=== PATIENT | male | born 1995 | race Caucasian/White ===

== ENCOUNTER 2019-06-22 07:42 | Inpatient (IN) ==
--- NOTE | 2019-06-22 08:24 | Emergency Department Note ---
ED Provider Note CHIEF COMPLAINT: Chest pain HISTORY OF PRESENTING ILLNESS: This is a 24-year-old male with no significant past medical history who presents to the emergency department by private vehicle with complaint of chest pain. Patient states for the past 3 nights he has been waking up around 3 AM with severe pain in his chest. He states the pain is in the middle of his chest and does not radiate anywhere, he describes it as a burning and a tightness, and states the pain is quite severe. Patient states that the pain last for an hour or 2 and then subsides on its own. Patient states that he thought it might be indigestion so he tried Tums and some baking soda with water, but notes that this did not help and he vomited right after he took these. He has vomited after drinking water the past few nights as well. He states that his symptoms lasted about 2 hours and completely resolved today. He presents to the ER because he is concerned for the persistent symptoms 3 nights in a row. He denies any history of similar symptoms in the past. He denies tobacco use or alcohol use. He does not have any symptoms during the day and has been eating and drinking without any difficulty. He denies any recent diet changes. He denies any bloody or coffee-ground emesis. His last bowel movement was today and was normal, he denies any diarrhea, constipation, bloody or black stools. He denies any abdominal or back pain. He denies any known [facility] history of heart disease. REVIEW OF SYSTEMS: A complete 10 point review of systems was reviewed with the patient with pertinent positives and negatives as per history of present illness. All else were negative. PAST MEDICAL HISTORY: No significant past medical or surgical history SOCIAL HISTORY: Lives at home, denies tobacco use ALLERGIES: No known drug allergies PHYSICAL EXAM: CONSTITUTIONAL: Pleasant and cooperative. Nontoxic-appearing and in no acute distress. Well appearing and well nourished. HEENT: Normocephalic, atraumatic. PERRL, EOMI. Pharynx normal. Moist mucous membranes. Airway patent. NECK: Supple, full active range of motion without discomfort. No cervical jess opathy. RESPIRATORY: Clear to auscultation bilaterally with no wheezing, crackles, rhonchi or stridor. Equal expansion bilaterally. CARDIOVASCULAR: Regular rate and rhythm with no murmurs, rubs or gallops. Normal peripheral perfusion, 2+ distal pulses in all 4 extremities. No pitting edema. GASTROINTESTINAL: Soft, nontender, nondistended. No palpable masses or HSM. Bowel sounds present in all quadrants. No CVA tenderness bilaterally. MUSCULOSKELETAL: Full range of motion of all joints without discomfort. No tenderness to palpation of the calves. INTEGUMENTARY: No rash or other significant dermatologic conditions noted. NEUROLOGIC: Alert and oriented X 4 with normal affect. Normal strength and sensation in all 4 extremities. Normal speech. Normal gait observed. ED COURSE AND MEDICAL DECISION MAKING: CC: Patient presenting with complaint of chest pain DIFFERENTIAL DIAGNOSIS: Includes, but not limited to GERD, gastritis, peptic ulcer disease, pancreatitis, cholecystitis, esophagitis, esophageal spasms, acute coronary syndrome, pericarditis, myocarditis, anxiety, among others. INTERPRETATION OF LABS: Leukocytosis, no anemia, normal platelets, no significant electrolyte abnormalities, normal renal function, AST is elevated, liver enzymes are otherwise normal, normal lipase. Significantly elevated troponin. IMAGING: XR chest 1V portable CLINICAL HISTORY: Atypical chest pain COMPARISON STUDY: No previous studies for comparison. FINDINGS: The cardiac and mediastinal contours are normal. There is no evidence of focal pulmonary consolidation. There is no evidence of failure. No pleural effusions are visualized. IMPRESSION: No active disease in the chest. EKG Interpretation: 06/22/2019 0750: Shows normal sinus rhythm with a rate of 86 bpm, normal intervals, 0.5-[address] elevations in leads II, aVF, and V2-V6, no ST depression, no ectopy by my interpretation. No previous EKG available for comparison. 06/22/2019 0914: Normal sinus rhythm with a rate of 74 bpm, mild ST elevation persist in leads V2 through V6, less prominent in leads II and aVF, T wave inversions now noted in leads I and aVL, no ST depression and no ectopy by my interpretation. MEDICATION RECONCILIATION: I attest that I have personally reviewed the patient's current medication list. INITIAL VITAL SIGNS REVIEW: I reviewed the patient's initial vital signs and interpret them as follows: T: Afebrile; BP: Normotensive; HR: Mildly tachycardic; RR: Within normal limits; Pulse Ox: Within normal limits on room air. Blood pressure screening: The patient was found to have normal blood pressure on screening and does not require follow-up for repeat blood pressure check. MDM SUMMARY: Patient was evaluated at bedside, history and physical exam performed. Patient is alert and oriented, in no acute distress, resting calmly in the stretcher. He denies any pain or other symptoms at this time. Lungs are clear. Heart sounds normal with no murmurs or rubs heard on auscultation. No edema. No reproducible chest wall pain. There is no pain with position changes or deep inspiration. Orders were placed at bedside for labs including a troponin, EKG, chest x-ray to evaluate for cardiopulmonary disease. Patient discussed with Dr. Nix, who agrees with my assessment, plan, and disposition. EKG reviewed as above, noting very mild ST elevation in multiple leads, which may suggest a mild pericarditis. Labs and imaging reviewed as above, labs reveal a mild leukocytosis as well as significantly elevated troponin. Heart score is 4 points for EKG changes and elevated troponin. I spoke on the phone with Dr. Taveras, cardiology, who evaluated the patient in the emergency department and performed a bedside echo. Bedside echo was concerning for mild global LV hypokinesis, Dr. Taveras recommended the patient be transferred to [place] to have a cardiac MRI. Dr. Taveras spoke on the phone with Dr. Villarreal, consultant teacher at [facility] in [place], who agrees to accept the patient as a direct admit for transfer. No additional treatments recommended at this time by the cardiologists. Patient will be kept NPO. Patient reassessed multiple times throughout ED stay, he has remained hemodynamically stable and chest pain-free. The patient and his parents were updated on the plan for transfer to [facility], they verbalized understanding and were agreeable to this plan. The charge nurse updated me on the fact that there is no bed availability at [facility] in [place] and it is uncertain when a bed will become available. I spoke on the phone with Dr. Villarreal, consultant teacher at [place], who felt it would be reasonable for the patient to be admitted to our hospitalist service here in the patient could be transferred for the cardiac MRI when a bed does become available. Dr. Villarreal did note that if the patient has been stable and chest pain-free, the cardiac MRI could also be done as an outpatient study after the patient has been appropriately observed. I spoke on the phone with MODESTO Love with [facility] hospitalist service, she spoke with Dr. Taveras, who requested that we see if the patient can be transferred to [facility] for cardiac MRI. I spoke on the phone with Dr. Chin, consultant teacher at [facility], who was happy to accept the patient for transfer, but stated that it could be several weeks until they are able to perform a cardiac MRI due to their scheduling. I spoke on the phone with Dr. Taveras again, we will keep the patient here on the [facility] service until the patient is able to be transferred to [facility] in [place], as he may be able to get a more timely cardiac MRI there. He did recommend starting the patient on metoprolol succinate 12.5 mg p.o. daily, first dose now. He also requested blood cultures be sent. I again spoke with MODESTO Love, who agrees to evaluate the patient for the admission. The patient and his family were all updated regarding the current plan of care and admission here at [facility], all questions were answered at this time and they verbalized understanding of the plan. The patient was stable awaiting admission. CRITICAL CARE NOTE: I have personally spent greater than 45 minutes of critical care time in the direct management of this patient. This includes bedside care, interpretation of diagnostic studies, and testing, discussion with consultants, patient, and f amily members, and other required patient management activities. This 45 minutes is in excess of all separately billable procedures. The chart was completed utilizing [employer] Speech voice recognition software. Grammatical errors, random word insertions, pronoun errors, and incomplete sentences are an occasional consequence of this system due to software limitations, ambient noise, and hardware issues. Any formal questions or concerns about the content, text, or information contained within the body of this dictation should be directly addressed to the nurse practitioner for clarification. Impression & Plan Chest pain, Elevated troponin Past Med/Surg History Social History Feels Safe at Home: Yes Smoking Status: Never smoker Results & Data Vital Signs Vital Signs - 24 hr 06/22/19 07:45 06/22/19 07:54 06/22/19 08:00 Temperature 36.9 C Temperature Source Oral Pulse Rate 102 H 90 78 Pulse Rate from SpO2 Sensor Respiratory Rate 20 27 H 17 Respiratory Effort / Characteristics Non-Labored Respiratory Depth Normal Blood Pressure 130/74 Blood Pressure Mean 92 Blood Pressure Position Sitting Pulse Oximetry 98 Oxygen Delivery Method Room Air Sepsis Recent Fever Within 48 Hours No Sepsis Action Taken by Nursing No Action Required 06/22/19 08:30 06/22/19 08:32 06/22/19 09:00 Temperature Temperature Source Pulse Rate 81 73 Pulse Rate from SpO2 Sensor Respiratory Rate 12 15 Respiratory Effort / Characteristics Respiratory Depth Blood Pressure Blood Pressure Mean Blood Pressure Position Pulse Oximetry Oxygen Delivery Method Room Air Sepsis Recent Fever Within 48 Hours Sepsis Action Taken by Nursing 06/22/19 09:29 06/22/19 09:30 06/22/19 10:00 Temperature Temperature Source Pulse Rate 89 79 79 Pulse Rate from SpO2 Sensor Respiratory Rate 14 17 18 Respiratory Effort / Characteristics Respiratory Depth Blood Pressure 95/65 L Blood Pressure Mean 73 Blood Pressure Position Pulse Oximetry Oxygen Delivery Method Sepsis Recent Fever Within 48 Hours Sepsis Action Taken by Nursing 06/22/19 10:30 06/22/19 11:00 06/22/19 11:26 Temperature Temperature Source Pulse Rate 77 79 85 Pulse Rate from SpO2 Sensor Respiratory Rate 12 16 19 Respiratory Effort / Characteristics Respiratory Depth Blood Pressure 108/66 Blood Pressure Mean 72 Blood Pressure Position Pulse Oximetry Oxygen Delivery Method Sepsis Recent Fever Within 48 Hours Sepsis Action Taken by Nursing 06/22/19 11:30 06/22/19 12:00 06/22/19 12:30 Temperature Temperature Source Pulse Rate 90 86 83 Pulse Rate from SpO2 Sensor Respiratory Rate 15 22 12 Respiratory Effort / Characteristics Respiratory Depth Blood Pressure Blood Pressure Mean Blood Pressure Position Pulse Oximetry Oxygen Delivery Method Sepsis Recent Fever Within 48 Hours Sepsis Action Taken by Nursing 06/22/19 13:00 06/22/19 13:30 06/22/19 14:00 Temperature Temperature Source Pulse Rate 87 84 90 Pulse Rate from SpO2 Sensor Respiratory Rate 20 19 16 Respiratory Effort / Characteristics Respiratory Depth Blood Pressure Blood Pressure Mean Blood Pressure Position Pulse Oximetry Oxygen Delivery Method Sepsis Recent Fever Within 48 Hours Sepsis Action Taken by Nursing 06/22/19 14:30 06/22/19 14:39 06/22/19 16:27 Temperature Temperature Source Pulse Rate 88 84 86 Pulse Rate from SpO2 Sensor 83 Respiratory Rate 17 13 15 Respiratory Effort / Characteristics Respiratory Depth Blood Pressure 111/68 116/74 Blood Pressure Mean 86 78 Blood Pressure Position Pulse Oximetry 99 Oxygen Delivery Method Sepsis Recent Fever Within 48 Hours Sepsis Action Taken by Nursing Laboratory Data Result diagrams: 06/22/19 08:28 06/22/19 08:28 Lab Results 06/22/19 06/22/19 06/22/19 Range/Units 08:28 08:28 08:28 WBC 14.19 H (4.8-10.8) K/uL RBC 5.30 (4.7-6.1) M/uL Hgb 15.4 (14.0-18.0) g/dL Hct 45.1 (42-52) % MCV 85.1 (80-100) fL MCH 29.1 (25-34) pg MCHC 34.1 (32-36) g/dL RDW Std Deviation 41.2 (36.4-46.3) fL RDW Coeff of [place] 13.2 (11.5-14.5) % Plt Count 270 (130-400) K/uL MPV 8.3 (7.4-10.4) fL Immature Gran % (Auto) 1.0 % Neut % (Auto) 75.4 % Lymph % (Auto) 14.9 % [place] % (Auto) 8.3 % Eos % (Auto) 0.1 % Baso % (Auto) 0.3 % Immature Gran # (Auto) 0.14 H (0.00-0.02) K/uL Neut # (Auto) 10.69 H (1.4-6.5) K/uL Lymph # (Auto) 2.12 (1.2-3.4) K/uL [place] # (Auto) 1.18 H (0.11-0.59) K/uL Eos # (Auto) 0.02 (0-0.5) K/uL Baso # (Auto) 0.04 (0-0.2) K/uL Sodium 138 (136-145) mmol/L Potassium 3.9 (3.5-5.1) mmol/L Chloride 105 (98-107) mmol/L Carbon Dioxide 28 (21-32) mmol/L Anion Gap 5.0 (3-11) BUN 11 (7-18) mg/dl Creatinine 1.10 (0.6-1.4) mg/dl Est Cr Clr Drug Dosing 115.0 ml/min Est GFR ( Amer) 106.8 Est GFR (Non-Af Amer) 92.2 BUN/Creatinine Ratio 9.8 L (10-20) Glucose 96 (70-99) mg/dl Calcium 9.4 (8.5-10.1) mg/dl Total Bilirubin 0.5 (0.2-1) mg/dl AST 100 H (15-37) U/L ALT 43 (12-78) U/L Alkaline Phosphatase 105 (45-117) U/L Total Creatine Kinase 749 H (39-308) U/L Troponin I 22.800 H* (0-0.045) ng/ml Total Protein 8.0 (6.4-8.2) gm/dl Albumin 3.7 (3.4-5.0) gm/dl Globulin 4.3 H (2.5-4.0) gm/dl Albumin/Globulin Ratio 0.9 (0.9-2) Lipase 84 (73-393) U/L Discharge Plan Visit Data Chief Complaint: Chest Pain Stated Complaint: CHEST PAIN, TIGHTNESS ED Provider: Shaquille Nix ED Midlevel Provider: Karin Carrasquillo Discharge Problem: Chest pain, Elevated troponin Patient Disposition: Being Evaluated by Hospitalist Condition: Good Forms Stand Alone Forms: Rouxbe Prescriptions Prescriptions: No Action No Known Home Medications RF: 0 Referrals Referrals: PCP,NO [Primary Care Provider] -
--- NOTE | 2019-06-22 08:26 | XRay Report ---
XR chest 1V portable CLINICAL HISTORY: Atypical chest pain COMPARISON STUDY: No previous studies for comparison. FINDINGS: The cardiac and mediastinal contours are normal. There is no evidence of focal pulmonary co nsolidation. There is no evidence of failure. No pleural effusions are visualized.[ IMPRESSION: No active disease in the chest. ACT 112: Negative or not required by law. Electronically signed by: Irwin Cameron M.D. 06/22/2019 8:25 AM
[2019-06-22 08:39] LABS: Basophils # (auto) 0.04 K/uL (0-0.2); Basophils % (auto) 0.3 %; Eosinophils # (auto) 0.02 K/uL (0-0.5); Eosinophils % (auto) 0.1 %; Hematocrit (blood only) 45.1 % (42-52); Hemoglobin 15.4 g/dL (14.0-18.0); Immature Granulocytes # (auto) 0.14 K/uL (0.00-0.02); Lymphocytes # (auto) 2.12 K/uL (1.2-3.4); Lymphocytes % (auto) 14.9 %; Mean Corpuscular Hemoglobin 29.1 pg (25-34); Mean Corpuscular Hgb Conc 34.1 g/dL (32-36); Mean Corpuscular Volume 85.1 fL (80-100); Mean Platelet Volume 8.3 fL (7.4-10.4); Monocytes # (auto) 1.18 K/uL (0.11-0.59); Monocytes % (auto) 8.3 %; Neutrophils # (auto) 10.69 K/uL (1.4-6.5); Neutrophils % (auto) 75.4 %; Platelet Count 270 K/uL (130-400); RDW Coefficient of Variation 13.2 % (11.5-14.5); RDW Standard Deviation 41.2 fL (36.4-46.3); White Blood Count 14.19 K/uL (4.8-10.8)
[2019-06-22 08:57] LABS: Albumin Level 3.7 gm/dl (3.4-5.0); BUN Creatinine Ratio 9.8 (10-20); Calcium 9.4 mg/dl (8.5-10.1); Est GFR (African American) 106.8; Est GFR (Non-African American) 92.2; Potassium 3.9 mmol/L (3.5-5.1)
[2019-06-22 09:06] LABS: Albumin Globulin Ratio 0.9 (0.9-2); Bilirubin,Total 0.5 mg/dl (0.2-1); Globulin 4.3 gm/dl (2.5-4.0); Troponin I 22.8 ng/ml (0-0.045)
--- NOTE | 2019-06-22 10:18 | Cardiology Consultation ---
Date of Consultation June 22, 2019 Assessment & Plan (1) Chest pain: (2) Elevated troponin: Currently he is pain-free at rest. The pattern of chest pain is obviously very atypical for ischemia. Given the patient's age and healthy status along with the troponin elevation, repolarization patterns on EKG, elevated white count and mild global LV hypokinesis I believe myocarditis is at the top of the differential diagnosis. Unfortunately, cardiac MRI is not available at this facility, so, I believe the most prudent course of action would be to transfer to a tertiary care center where cardiac MRI is available to confirm or exclude the diagnosis I have discussed the case with Dr. Villarreal the on-call shagger at [facility] and he is been accepted for transfer. At this time I do not see the benefit of initiating any medications, should myocarditis be confirmed then supportive care will be initiated I have explained the above findings along with the differential diagnosis with the patient and his parents. They all state that they understand, agree with the above plan and agree with transfer to [facility]. They verbalized that all their questions have been answered to satisfaction. History of Present Illness Reason for Consultation: Chest pain with troponin elevation Requesting Physician: MODESTO aBcon Attending Physician: Dr. Nix History of Present Illness It was my pleasure to see Mr. Menendez in emergent cardiac consultation today June 22, 2019. He is a very pleasant and healthy 24-year-old gentleman who presented to [facility] with complaints of chest pain. He states that the 3 nights prior to presentation he would go to bed in her normal state of health and then wake up in the middle the night with chest pain. He would describe it as a pressure/stabbing/burning sensation that would be rather severe at times. At first he thought it was indigestion and tried to make himself vomit which did not seem to help that much. After about an hour the symptoms resolved on their own and he was able to go back to sleep. He had a similar pattern the next 2 nights and did attempt taking antacids without benefit. The episode on the was much more severe and he came into the emergency department with his parents. He is now currently pain-free. He denies any pain throughout the day and again the only episodes that have occurred in the middle the night that would wake him up. He denies any associated shortness of breath, radiation of the discomfort, lightheadedness, palpitations, dizziness or syncope. Upon further questioning he did have a slight URI a few days prior to the chest pain occurring. He denies any sick contacts. He currently lives in [facility] and is in [place] visiting his parents. Denies any tick bites or any time in the max. No significant fevers chills or myalgias. Again, he is otherwise in his normal state of health. Mother and father at the bedside during the examination. Past surgical history: [place] tooth extraction. Past medical history; denies. Family history: Denies any premature coronary disease or sudden cardiac . Social history: Denies any alcohol tobacco or recreational drug use. He is not . 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 Allergies Allergy/AdvReac Type Severity Reaction Status Date / Time bee venom protein (honey bee) Allergy Intermediate Hives Unverified 06/22/19 08:04 Home Medications Home Medications Medication Instructions Recorded Confirmed Type penicillin V potassium 500 mg PO TID 10 Days #60 tab 06/23/19 Rx Patient History Surgical History (Updated 06/22/19 @ 18:31 by Annetta Eugene PA-C) History of wisdom tooth extraction Family History (Updated 06/22/19 @ 18:32 by Annetta Eugene PA-C) Father Colorectal cancer Hypertension Mother Dyslipidemia Grandmother (Maternal) Coronary heart disease Brother Cancer Neuroblastoma Social History (Updated 06/22/19 @ 18:33 by Annetta Eugene PA-C) Preferred Language: Croatian Communication Ability: Effective 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 No acute distress. HEENT: Normocephalic, atraumatic. Pupils equal, round and reactive to light and accommodation. Extraocular muscles are intact. Anicteric sclera. Moist mucous membranes. Neck: No JVD. No bruit. Cardiovascular: Regular. No S-4. Normal S-1 and S-2. No S-3. No murmurs, rubs or gallops. Pulmonary: Clear to auscultation bilaterally. No rales, rhonchi, or wheezing. Abdomen: Bowel sounds x 4, soft. No rebound, guarding or tenderness. No organomegaly. Extremities: No clubbing, cyanosis or edema. +2 pedal pulses bilaterally. Skin: Warm and dry. Results & Data Vital Signs (Past 12 Hours) Vital Signs Temp Pulse Resp BP Pulse Ox 06/22/19 09:30 79 17 06/22/19 09:29 89 14 95/65 L 06/22/19 09:00 73 15 06/22/19 08:30 81 12 06/22/19 08:00 78 17 06/22/19 07:54 90 27 H 06/22/19 07:45 36.9 C 102 H 20 130/74 98 Laboratory Results Laboratory Results - last 24 hr 06/22/19 06/22/19 06/22/19 08:28 08:28 08:28 WBC 14.19 H RBC 5.30 Hgb 15.4 Hct 45.1 MCV 85.1 MCH 29.1 MCHC 34.1 RDW Std Deviation 41.2 RDW Coeff of [place] 13.2 Plt Count 270 MPV 8.3 Immature Gran % (Auto) 1.0 Neut % (Auto) 75.4 Lymph % (Auto) 14.9 [place] % (Auto) 8.3 Eos % (Auto) 0.1 Baso % (Auto) 0.3 Immature Gran # (Auto) 0.14 H Neut # (Auto) 10.69 H Lymph # (Auto) 2.12 [place] # (Auto) 1.18 H Eos # (Auto) 0.02 Baso # (Auto) 0.04 Sodium 138 Potassium 3.9 Chloride 105 Carbon Dioxide 28 Anion Gap 5.0 BUN 11 Creatinine 1.10 Est Cr Clr Drug Dosing 115.0 Est GFR ( Amer) 106.8 Est GFR (Non-Af Amer) 92.2 BUN/Creatinine Ratio 9.8 L Glucose 96 Calcium 9.4 Total Bilirubin 0.5 AST 100 H ALT 43 Alkaline Phosphatase 105 Total Creatine Kinase Pending Troponin I 22.800 H* Total Protein 8.0 Albumin 3.7 Globulin 4.3 H Albumin/Globulin Ratio 0.9 Lipase 84
[2019-06-22] MEDS ORDERED: METOPROLOL SUCC 25MG EXT REL TAB PO STA (16:55)
--- NOTE | 2019-06-22 18:18 | History & Physical Report ---
Date of Service June 22, 2019 Assessment & Plan (1) Chest pain: (2) Elevated troponin: Pt is 24 y/o M without significant past medical history presented to ER with complaint of chest pain waking him from sleep past 3 night. One week ago with sore throat. No known fever/chills, cough, rashes, SOB. DDX: myocarditis Patient was evaluated in ER and found to have WBC: 14, troponin: 22. Vitals stable. -Cardiology consulted-Dr. Taveras evaluated patient in ER -Echocardiogram was obtained showing borderline global hypokinesis, EF: 50-60%, no pericardial effusion, no valvular lesions. -It was felt patient may have myocarditis and plan was to transfer patient to [facility] for further evaluation and cardiac MRI, however [facility] currently does not have beds -Suggested admission overnight with plan to transfer later -Recommends metoprolol succinate 12.5 mg daily -Lyme titer pending -Blood cultures pending -Trend troponin -CBC, BMP in am (3) Strep pharyngitis: +rapid strep test -Start penicillin VK 500mg TID -ID consult DVT Prophylaxis -Low risk, Ambulate Pt was seen and care coordinated with Dr Evans. See addendum History of Present Illness Chief Complaint: CP Primary Care Provider: NO PCP Pt is 24 y/o M without significant past medical history presented to ER with complaint of chest pain. Patient reported chest pain occurring at night waking him from sleep for the past 3 days. He describes pain as burning/stabbing sensation. Initially thought it was GERD and tried antacids without relief. Patient denies any shortness of breath. He states 1 week ago had sore throat and swollen glands to neck which self resolved and 2 days. Denies fever, chills, rhinorrhea, cough, rashes, shortness of breath, wheezing, otalgia. Reports history of mono as a teenager. Denies ill contacts. Denies diaphoresis, N/V/D/C, LITTLE, dizziness, syncope, vision changes, neck pain, CP, SOB, orthopnea, palpitations, abdominal pain, paresthesias, weakness, extremity weakness, extremity edema, rashes, urinary symptoms. Patient was evaluated in ER and found to have WBC: 14, troponin: 22. C ardiology-Dr. Taveras evaluated patient in ER and echocardiogram was obtained showing borderline global hypokinesis, EF: 50-60%, no pericardial effusion, no valvular lesions. It was felt patient may have myocarditis and plan was to transfer patient to [facility] for further evaluation and cardiac MRI, however [facility] currently does not have beds. Dr. Taveras suggested admission overnight with plan to transfer later and recommends metoprolol succinate 12.5 mg daily. Allergies Allergy/AdvReac Type Severity Reaction Status Date / Time bee venom protein (honey bee) Allergy Intermediate Hives Unverified 06/22/19 08:04 Home Medications Home Medications Medication Instructions Recorded Confirmed Type No Known Home Medications 06/22/19 06/22/19 History Past Med/Surg History Surgical History (Updated 06/22/19 @ 18:31 by Annetta Eugene PA-C) History of wisdom tooth extraction Family History (Updated 06/22/19 @ 18:32 by Annetta Eugene PA-C) Father Colorectal cancer Hypertension Mother Dyslipidemia Grandmother (Maternal) Coronary heart disease Brother Cancer Neuroblastoma Social History (Updated 06/22/19 @ 18:33 by Annetta Eugene PA-C) Preferred Language: Monegasque Communication Ability: Effective Director Medical Writing Required: No Beliefs That Will Affect Care: None Current Living Situation: Alone Other Information That Helps Us Care for You: No Feels Safe at Home: Yes Safety Concerns: Feels Safe At This Time Smoking Status: Never smoker Hx Alcohol Use: Yes Alcohol Intake Frequency: Rarely Hx Substance Use: No Review of Systems Review of Systems: All systems reviewed & are unremarkable except as noted in HPI & below Physical Exam Physical Exam: General: no distress, WDWN Head: normocephalic, atraumatic Eyes: PERRL, EOM's intact, conjunctiva non-injected, anicteric ENT: normal inspection external ears, nose, Pharynx: Tonsils enlarged 2-3+, no significant erythema and without exudate, uvula midline, mucous membranes moist, +halitosis Neck: supple, trachea midline, few anterior cervical lymphadenopathy, non-tender Lungs: clear, no respiratory distress, no wheezing/rhonchi/rales CV: RRR, no murmur, no pretibial edema Abd: normal BS, soft, non-tender Ext: no cyanosis, no calf tenderness Neuro: A&O x 3, no focal deficits noted, normal affect Skin: warm, dry, no rashes noted Results & Data Vital Signs (Past 12 Hours) Vital Signs Temp Pulse Resp BP Pulse Ox 06/22/19 18:07 79 15 111/76 98 06/22/19 16:27 86 15 116/74 99 06/22/19 14:39 84 13 111/68 06/22/19 14:30 88 17 06/22/19 14:00 90 16 06/22/19 13:30 84 19 06/22/19 13:00 87 20 06/22/19 12:30 83 12 06/22/19 12:00 86 22 06/22/19 11:30 90 15 06/22/19 11:26 85 19 108/66 06/22/19 11:00 79 16 06/22/19 10:30 77 12 06/22/19 10:00 79 18 06/22/19 09:30 79 17 06/22/19 09:29 89 14 95/65 L 06/22/19 09:00 73 15 06/22/19 08:30 81 12 06/22/19 08:00 78 17 06/22/19 07:54 90 27 H 06/22/19 07:45 36.9 C 102 H 20 130/74 98 Laboratory Results Short CBC 06/22/19 Range/Units 08:28 WBC 14.19 H (4.8-10.8) K/uL Hgb 15.4 (14.0-18.0) g/dL Hct 45.1 (42-52) % Plt Count 270 (130-400) K/uL BMP 06/22/19 08:28 Sodium 138 Potassium 3.9 Chloride 105 Carbon Dioxide 28 BUN 11 Creatinine 1.10 Glucose 96 Calcium 9.4 Cardiac Enzymes 06/22/19 06/22/19 Range/Units 08:28 08:28 Total Creatine Kinase 749 H (39-308) U/L Troponin I 22.800 H* (0-0.045) ng/ml Liver Function 06/22/19 Range/Units 08:28 Total Bilirubin 0.5 (0.2-1) mg/dl AST 100 H (15-37) U/L ALT 43 (12-78) U/L Alkaline Phosphatase 105 (45-117) U/L Albumin 3.7 (3.4-5.0) gm/dl Diagnostic Findings CXR: IMPRESSION: No active disease in the chest. ECG Rate (beats per minute): 86 Rhythm: sinus rhythm Supervising Physician Co-Signing Physician Notes 24 y/o M without significant past medical history presented to ER with complaint of chest pain. Patient reported chest pain occurring at night waking him from sleep for the past 3 days. Pain is retrosternal, not referred, intermittent Patient is currently chest pain-free. Examination was remarkable for enlarged tonsils with erythema without exudates. Other details of history and exam as above. EKG was normal sinus rhythm with right axis deviation. Troponin was markedly elevated at 22. Echo showed borderline global hypokinesis with normal to low normal left ventricular systolic function EF of 50 to 60%. No valvular lesions consistent with endocarditis Cardiology consult appreciated Management of myocarditis per cardiology recommendation. Plan for possible transfer to [facility] down reviewed the cardiac MRI. In the interim we will continue management here with cardiology. Continue penicillin for strep Follow-up blood cultures obtained. ID consult will be appreciated Other plans are as above (1) Chest pain Chest pain type: chest pain due to myocardial ischemia Ischemic chest pain type: unspecified angina pectoris type Qualified Code(s): I25.9 - Chronic ischemic heart disease, unspecified
[2019-06-22 19:06] LABS: Lyme Ab IgG w/WB Rflx Negative (Negative); Lyme Ab IgM w/WB Rflx Negative (Negative)
[2019-06-22] MEDS ORDERED: ACETAMINOPHEN 325 MG TAB PO PRN (19:51)
[2019-06-22] MEDS: PENICILLIN V POTASSIUM 250 MG TAB PO SCH (21:42)
[2019-06-22 22:36] LABS: Appearance Urine Clear (Clear); Bilirubin Urine Negative (Negative); Blood Urine Negative (Negative); Color Urine Yellow; Glucose Urine UA Negative (Negative); Ketones Urine Negative (Negative); Leukocyte Esterase Urine Negative (Negative); Nitrite Urine Negative (Negative); Protein Urine Negative (Negative); Specific Gravity Urine 1.005 (1.000-1.030); Urobilinogen Urine Negative (Negative); pH Urine 6.5 (4.5-7.5)
[2019-06-22 23:36] LABS: Amphetamines+Metham, Urine Neg (Neg); Barbiturates, Urine Neg (Neg); Benzodiazepine, Urine Neg (Neg); Cocaine, Urine Neg (Neg); MDMA (Ecstacy), Urine Neg (Neg); Methadone, Urine Neg (Neg); Opiate, Urine Neg (Neg); Phencyclidine, Urine Neg (Neg)
[2019-06-23 02:41] LABS: Basophils # (auto) 0.02 K/uL (0-0.2); Basophils % (auto) 0.2 %; Eosinophils # (auto) 0.08 K/uL (0-0.5); Eosinophils % (auto) 0.8 %; Hematocrit (blood only) 45.4 % (42-52); Hemoglobin 15.5 g/dL (14.0-18.0); Immature Granulocytes # (auto) 0.13 K/uL (0.00-0.02); Immature Granulocytes % (auto) 1.2 %; Lymphocytes # (auto) 2.63 K/uL (1.2-3.4); Lymphocytes % (auto) 25.1 %; Mean Corpuscular Hemoglobin 29.3 pg (25-34); Mean Corpuscular Hgb Conc 34.1 g/dL (32-36); Mean Corpuscular Volume 85.8 fL (80-100); Mean Platelet Volume 8.4 fL (7.4-10.4); Monocytes # (auto) 1.41 K/uL (0.11-0.59); Monocytes % (auto) 13.5 %; Neutrophils # (auto) 6.21 K/uL (1.4-6.5); Neutrophils % (auto) 59.2 %; Platelet Count 276 K/uL (130-400); RDW Coefficient of Variation 13.3 % (11.5-14.5); RDW Standard Deviation 41.8 fL (36.4-46.3); Red Blood Count 5.29 M/uL (4.7-6.1); White Blood Count 10.48 K/uL (4.8-10.8)
[2019-06-23 02:59] LABS: BUN Creatinine Ratio 11.8 (10-20); Calcium 9.5 mg/dl (8.5-10.1); Est GFR (African American) 101.2; Est GFR (Non-African American) 87.3
[2019-06-23 03:09] LABS: Troponin I 8.58 ng/ml (0-0.045)
[2019-06-23] MEDS: PENICILLIN V POTASSIUM 250 MG TAB PO SCH ×2 (07:59→15:07)
[2019-06-23] MEDS ORDERED: METOPROLOL SUCC 25MG EXT REL TAB PO SCH (09:00)
--- NOTE | 2019-06-23 09:04 | Cardiology Progress Note ---
Date of Service June 23, 2019 Assessment & Plan (1) Strep pharyngitis: (2) Elevated troponin: (3) Chest pain: This is an unusual case of a healthy 24-year-old male patient who experienced chest pain on consecutive nights that awoke him from sleep. He also had a sore throat for several days that was actually resolving and the patient was feeling better when he traveled from [place] to [place] to visit his parents. He had a severe episode of chest pain in the middle the night and was brought to the emergency department. He was found to have elevated troponins which have peaked at 22. No acute changes on his EKG that would suggest the STEMI. His echocardiogram showed no pericardial effusion and his chest x-ray revealed no pneumonia. His strep screen however was positive and he has been started on antibiotics. The echocardiogram also showed no wall motion abnormal ities that would suggest ischemic heart disease. He is currently stable and waiting for transfer to [facility] for additional cardiac imaging. At present I would continue current treatment. Subjective The patient feels well and has no new cardiac complaints today. Review of Systems Review of Systems: All systems reviewed & are unremarkable except as noted in HPI & below Nothing additional to add except that the patient's strep screen was positive. Physical Exam Physical Exam: General: no acute distress and stated age Head: normocephalic, no masses, lesions, tenderness or abnormalities Eyes: conjunctiva are pink and non-injected, sclera clear Neck: supple, no adenopathy, no bruits, normal jugular venous pulse, no hepatojugular reflux Chest: normal shape and normal respiratory effort Lungs: clear to auscultation and percussion Cardiac Exam: - regular rate & rhythm, no murmurs gallops or rubs - normal S1, normal S2 Pulses: 2(+) throughout Abdomen: abdomen soft, non-tender, no abnormal masses and no hepatosplenomegaly Musculoskeletal: no gait disturbance, no joint inflammation, no deforming arthritis Extremities: no edema and no cyanosis Neuro: grossly normal exam Results & Data Vital Signs (Past 12 Hours) Vital Signs Temp Pulse Pulse Pulse Resp BP Pulse Ox 06/23/19 07:32 36.9 C 70 18 110/70 95 06/23/19 03:08 37.0 C 66 18 111/55 L 96 06/23/19 00:00 93 H 06/22/19 23:48 37.0 C 75 18 109/55 L 97 Laboratory Results Laboratory Results - last 24 hr 06/22/19 06/22/19 06/22/19 08:28 08:28 08:28 WBC RBC Hgb Hct MCV MCH MCHC RDW Std Deviation RDW Coeff of [place] Plt Count MPV Immature Gran % (Auto) Neut % (Auto) Lymph % (Auto) [place] % (Auto) Eos % (Auto) Baso % (Auto) Immature Gran # (Auto) Neut # (Auto) Lymph # (Auto) [place] # (Auto) Eos # (Auto) Baso # (Auto) Sodium Potassium Chloride Carbon Dioxide Anion Gap BUN Creatinine Est Cr Clr Drug Dosing Est GFR ( Amer) Est GFR (Non-Af Amer) BUN/Creatinine Ratio Glucose Calcium Total Bilirubin 0.5 AST 100 H ALT 43 Alkaline Phosphatase 105 Total Creatine Kinase 749 H Troponin I 22.800 H* Total Protein 8.0 Globulin 4.3 H Albumin/Globulin Ratio 0.9 Urine Color Urine Appearance Urine pH Ur Specific [place] Urine Protein Urine Glucose (UA) Urine Ketones Urine Blood Urine Nitrite Urine Bilirubin Urine Urobilinogen Ur Leukocyte Esterase Urine Opiates Screen Ur Methadone, Qual Urine Barbiturates Ur Phencyclidine (PCP) U Amphetamin/Meth Scrn MDMA (Ecstasy) Screen U Benzodiazepines Scrn Ur Cocaine Metabolite U Marijuana (THC) Screen U Marijuana THC Carboxy Drug Screen Comment Lyme Disease IgG Ab Negative Lyme Disease IgM Ab Negative 06/22/19 06/22/19 06/22/19 18:54 22:15 22:15 WBC RBC Hgb Hct MCV MCH MCHC RDW Std Deviation RDW Coeff of [place] Plt Count MPV Immature Gran % (Auto) Neut % (Auto) Lymph % (Auto) [place] % (Auto) Eos % (Auto) Baso % (Auto) Immature Gran # (Auto) Neut # (Auto) Lymph # (Auto) [place] # (Auto) Eos # (Auto) Baso # (Auto) Sodium Potassium Chloride Carbon Dioxide Anion Gap BUN Creatinine Est Cr Clr Drug Dosing Est GFR ( Amer) Est GFR (Non-Af Amer) BUN/Creatinine Ratio Glucose Calcium Total Bilirubin AST ALT Alkaline Phosphatase Total Creatine Kinase Troponin I 12.800 H* Total Protein Globulin Albumin/Globulin Ratio Urine Color Yellow Urine Appearance Clear Urine pH 6.5 Ur Specific [place] 1.005 Urine Protein Negative Urine Glucose (UA) Negative Urine Ketones Negative Urine Blood Negative Urine Nitrite Negative Urine Bilirubin Negative Urine Urobilinogen Negative Ur Leukocyte Esterase Negative Urine Opiates Screen Neg Ur Methadone, Qual Neg Urine Barbiturates Neg Ur Phencyclidine (PCP) Neg U Amphetamin/Meth Scrn Neg MDMA (Ecstasy) Screen Neg U Benzodiazepines Scrn Neg Ur Cocaine Metabolite Neg U Marijuana (THC) Screen Pos H U Marijuana THC Carboxy Drug Screen Comment Lyme Disease IgG Ab Lyme Disease IgM Ab 06/22/19 06/23/19 06/23/19 22:15 02:19 02:19 WBC 10.48 RBC 5.29 Hgb 15.5 Hct 45.4 MCV 85.8 MCH 29.3 MCHC 34.1 RDW Std Deviation 41.8 RDW Coeff of [place] 13.3 Plt Count 276 MPV 8.4 Immature Gran % (Auto) 1.2 Neut % (Auto) 59.2 Lymph % (Auto) 25.1 [place] % (Auto) 13.5 Eos % (Auto) 0.8 Baso % (Auto) 0.2 Immature Gran # (Auto) 0.13 H Neut # (Auto) 6.21 Lymph # (Auto) 2.63 [place] # (Auto) 1.41 H Eos # (Auto) 0.08 Baso # (Auto) 0.02 Sodium 139 Potassium 4.0 Chloride 103 Carbon Dioxide 31 Anion Gap 5.0 BUN 14 Creatinine 1.15 Est Cr Clr Drug Dosing 110.0 Est GFR ( Amer) 101.2 Est GFR (Non-Af Amer) 87.3 BUN/Creatinine Ratio 11.8 Glucose 98 Calcium 9.5 Total Bilirubin AST ALT Alkaline Phosphatase Total Creatine Kinase Troponin I 8.580 H* Total Protein Globulin Albumin/Globulin Ratio Urine Color Urine Appearance Urine pH Ur Specific [place] Urine Protein Urine Glucose (UA) Urine Ketones Urine Blood Urine Nitrite Urine Bilirubin Urine Urobilinogen Ur Leukocyte Esterase Urine Opiates Screen Ur Methadone, Qual Urine Barbiturates Ur Phencyclidine (PCP) U Amphetamin/Meth Scrn MDMA (Ecstasy) Screen U Benzodiazepines Scrn Ur Cocaine Metabolite U Marijuana (THC) Screen U Marijuana THC Carboxy Pending Drug Screen Comment Pending Lyme Disease IgG Ab Lyme Disease IgM Ab Medications Administered Current Inpatient Medications Acetaminophen (Tylenol) 650 mg PO Q4H PRN PRN Reason: Pain or Fever Stop: 07/22/19 19:50 Metoprolol Succinate (Toprol Xl) 12.5 mg PO QAM [facility] Stop: 07/23/19 08:59 Last Admin: 06/23/19 07:59 Dose: 12.5 mg Documented by: Penicillin V Potassium (Veetids) 500 mg PO TID [facility] Stop: 07/02/19 20:59 Last Admin: 06/23/19 07:59 Dose: 500 mg Documented by: (1) Chest pain Chest pain type: chest pain due to myocardial ischemia Ischemic chest pain type: unspecified angina pectoris type Qualified Code(s): I25.9 - Chronic ischemic heart disease, unspecified
--- NOTE | 2019-06-23 14:48 | Discharge Summary ---
Date of Service June 23, 2019 Admission HPI Per Admitting Provider Pt is 24 y/o M without significant past medical history presented to ER with complaint of chest pain. Patient reported chest pain occurring at night waking him from sleep for the past 3 days. He describes pain as burning/stabbing sensation. Initially thought it was GERD and tried antacids without relief. Patient denies any shortness of breath. He states 1 week ago had sore throat and swollen glands to neck which self resolved and 2 days. Denies fever, chills, rhinorrhea, cough, rashes, shortness of breath, wheezing, otalgia. Reports history of mono as a teenager. Denies ill contacts. Denies diaphores is, N/V/D/C, LITTLE, dizziness, syncope, vision changes, neck pain, CP, SOB, orthopnea, palpitations, abdominal pain, paresthesias, weakness, extremity weakness, extremity edema, rashes, urinary symptoms. Patient was evaluated in ER and found to have WBC: 14, troponin: 22. Cardiology-Dr. Taveras evaluated patient in ER and echocardiogram was obtained showing borderline global hypokinesis, EF: 50-60%, no pericardial effusion, no valvular lesions. It was felt patient may have myocarditis and plan was to transfer patient to [facility] for further evaluation and cardiac MRI, however [facility] currently does not have beds. Dr. Taveras suggested admission overnight with plan to transfer later and recommends metoprolol succinate 12.5 mg daily. Admission Exam Per Admitting Provider General: no distress, WDWN Head: normocephalic, atraumatic Eyes: PERRL, EOM's intact, conjunctiva non-injected, anicteric ENT: normal inspection external ears, nose, Pharynx: Tonsils enlarged 2-3+, no significant erythema and without exudate, uvula midline, mucous membranes moist Neck: supple, trachea midline, few anterior cervical lymphadenopathy, non-tender Lungs: clear, no respiratory distress, no wheezing/rhonchi/rales CV: RRR, no murmur, no pretibial edema Abd: normal BS, soft, non-tender Ext: no cyanosis, no calf tenderness Neuro: A&O x 3, no focal deficits noted, normal affect Skin: warm, dry, no rashes noted Principal Diagnosis Chest pain Elevated troponin Possible myocarditis Streptococcal pharyngitis Discharge Exam General: Well nourished, well hydrated , average body habitus, no acute distress and not ill appearing Eyes: PERRL, conjunctivae normal, not pale, anicteric sclerae, EOM intact bilaterally ENMT: External ear and nose normal, Enlarged tonsils, no exudates Neck: Normal visual inspection, no tracheal deviation, no swelling noted Respiratory: Normal respiratory effort, no respiratory distress, lungs clear to auscultation, no crackles and no wheezes Cardiovascular: Pulse is RRR. Heart Sounds: normal S1 and normal S2; no murmurs. no pedal edema Chest (Breasts): Chest: normal inspection of chest, no tenderness on palpation Gastrointestinal (Abdomen): Abdomen is not distended, soft, non-tender to palpation, no guarding, no palpable hepatosplenomegaly, normal bowel sounds Musculoskeletal: No cyanosis or clubbing, all extremities motor strength 5/5 Genitourinary: No CVA tenderness Skin: No rash noted on gross inspection, No ulcers noted Neurologic: Alert and oriented x 3, No focal weakness, sensation grossly intact Psychiatric: Euthymic affect, no depressed affect Discharge Data Allergies Allergy/AdvReac Type Severity Reaction Status Date / Time bee venom protein (honey bee) Allergy Intermediate Hives Unverified 06/22/19 08:04 Consultations 06/22/19 10:02 Consult Cardiology Stat 06/22/19 17:30 ED Decision to Admit Stat 06/22/19 19:51 Consult Cardiology Routine Consult Infectious Diseases Routine Hospital Course (1) Chest pain: (2) Elevated troponin: 24 y/o M without significant past medical history presented to ER with complaint of chest pain waking him from sleep past 3 night. Had sore throat within the last week that has resolved. No known fever/chills, cough, rashes, SOB. Has been chest pain-free since after admission Initial troponin was 22.8 -->12.8 -->8.58 EKG was normal sinus rhythm right axis deviation, repolarization patterns. Echo showed borderline global hypokinesis, EF of 50 to 60% without pericardial effusion or valvular lesions Possible myocarditis. Was evaluated by field gauger who recommended transfer to review for cardiac MRI as well as further evaluation. Patient may need cardiac catheterization for further evaluation. (3) Strep pharyngitis: +rapid strep test Started on penicillin VK 500mg TID yesterday Can consider ID consult Total Time Total Time Spent Total Time Spent (In Minutes): 35 Total Time Includes: Examination of the Patient, Discharge Planning, Medication Reconciliation and Communication With Other Providers Discharge Plan Discharge Items Patient Disposition: Transfer Acute Care Hospital Reason For Visit: Chest pain Discharge Diagnosis: Possible myocarditis Condition on Discharge: Good Activity: Resume your previous activity Non-emergency contact: Primary Care Provider and Water Supervisor Call non-emergency contact if: you have any medication questions and your symptoms worsen Follow-up/Referrals: PCP,NO [Primary Care Provider] - Diet: Heart Healthy Addtl Attending Provider Instructions: Mr. Menendez. You came to the hospital complaining of chest pain that has been waking you up at night over the past 3 days. He also reported having some cold symptoms recently. On presentation to the hospital, you were evaluated and found to have elevated troponins [gets elevated when the heart is under strain/stress/damage etc]. He also had echo cardiogram [ultrasound of the heart] and EKGs done. You were also noted to have enlarged tonsils that were erythematous. Rapid strep test was positive. He was started on penicillin. You are being transferred to [facility] for further evaluation and management. It was a pleasure taking care of you. Pending Studies at Discharge: No Stand-Alone Forms: My [facility] Skilled Items Patient informed of condition?: Yes DNR: No Discharge Level of Care: Other Communicable Disease: No Discharge Prognosis: Stable Lines: Peripheral IV Urinary Catheter: No Medications and DC Order Prescriptions: New penicillin V potassium 250 mg Tablet 500 mg PO TID 10 Days Qty: 60 RF: 0 Discharge Orders: Discharge Order (Routine); Ordered 06/23/19 Ordered By: Maggie Evans Admission Data Admit Date/Time: 06/22/19 17:53 Attending Provider: Maggie Evans I. Admit Provider: Maggie Evans I. Primary Care Provider: PCP,NO Other Providers: Markos Taveras ; Yesenia Wolff ; Preet Candelario ; Mark Tavera Other Interventions: Discharge Summary Assessment (RN) Last Done: 06/23/19 16:06 DC Date/Time DO NOT enter until pt leaves facility: 06/23/19 18:00
[2019-06-24 16:34] LABS: Marijuana Quant, GCMS Urine 29 ng/mL (<5)
== END 2019-06-23 18:00 | disposition short-term general hospital (02) | DRG 316 ==
LOC: ED 07:42 → 2E 17:53